=== PATIENT | female | born 1950 | race Hispanic/Latino ===

== ENCOUNTER 2020-07-02 13:48 | Emergency (ER) | payer OTHER ==
[2020-07-02 15:29] LABS: Basophils # (Auto) 0.1 K/mm3 (0.0-0.1); Basophils % (Auto) 1.1 % (0.0-1.8); Eosinophils # (Auto) 0.2 K/mm3 (0.0-0.4); Eosinophils % (Auto) 4.3 % (0.0-4.3); Hematocrit 34.6 % (30.3-42.9); Hemoglobin 11.8 gm/dl (10.1-14.3); Lymphocytes % (Auto) 18.8 % (13.4-35.0); Mean Corpuscular HGB Conc 34 % (30-34); Mean Corpuscular Volume 88 fl (79-97); Monocytes # (Auto) 0.5 K/mm3 (0.0-0.8); Monocytes % (Auto) 9.4 % (0.0-7.3); Platelet Count 317 K/mm3 (140-440); Red Blood Count 3.94 M/mm3 (3.65-5.03)
[2020-07-02 15:38] LABS: INR 1.06 (0.87-1.13)
[2020-07-02 15:39] LABS: Partial Thromboplastin Time 30.8 Sec. (24.2-36.6)
[2020-07-02 15:48] LABS: Albumin 3.4 g/dL (3.9-5); BUN/Creatinine Ratio 17; Blood Urea Nitrogen 15 mg/dL (7-17); Calcium 8.7 mg/dL (8.4-10.2); Hemolysis Index 2
[2020-07-02 15:52] LABS: Alanine Aminotransferase < 5 units/L (7-56)
[2020-07-02] MEDS ORDERED: SODIUM CHLORIDE 0.9% 1000 ML 1,000 ML IV ONE (16:23)
[2020-07-02] MEDS ORDERED: HYDROmorphone 1 MG/1 ML INJ IV ONE (16:23)
--- NOTE | 2020-07-02 16:24 | Emergency Department Report ---
ED General Adult HPI - General Chief complaint: GI Bleed Stated complaint: DARK STOOL PUI?: No Time Seen by Provider: 07/02/20 14:21 Source: patient, EMS ( EMS documentation not available at time of chart dictation ), RN notes reviewed, old records reviewed Mode of arrival: Stretcher Limitations: Other (Patient is demented) - History of Present Illness Initial comments: The patient was evaluated in the emergency department for symptoms described in the history of present illness. He/she was evaluated in the context of the global COVID-19 pandemic, which necessitated consideration that the patient might be at risk for infection with the virus that causes COVID-19. Institutional protocols and algorithms that pertain to the evaluation of patients at risk for COVID-19 are in a state of rapid change based on information released by regulatory bodies including the CDC and federal and state organizations. These policies and algorithms were followed during the patient's care in the emergency department. Please note that these policies, procedures and recommendations changed on a rapid basis. This is a 69-year-old female. She is not known to myself previously. She reportedly has a history of dementia, and possible hypertension. She presents on a 1013, with a psychiatric sitter. Patient was recently cleared fr another hospital, for aggressive behavior, and sent to a local psychiatric facility. She was referred to this emergency room, because she had an episode of black stool. Her enclosed paperwork does not indicate the presence of systemic anticoagulation. The patient is initially pleasant and cooperative, demented and a poor historian. She denies physical pain. She denies hallucinations. Given her dementia, she is not able to describe qualitative nature of symptoms, exacerbating factors, relieving factors or aggravating factors. Her accompanying sitter indicates that she had a "jet black bowel movement." He has not seen any nausea or vomiting. -: This afternoon Quality: other Consistency: other Improves with: other Worsens with: other Associated Symptoms: other Treatments Prior to Arrival: other - Related Data Allergies Allergy/AdvReac Type Severity Reaction Status Date / Time Penicillins Allergy Unknown Verified 07/02/20 14:06 ED Review of Systems ROS: Stated complaint: DARK STOOL Other details as noted in HPI Comment: Unobtainable due to pts medical conditions (Patient demented and a poor historian) ED Past Medical Hx - Past Medical History Previous Medical History?: Yes Hx Hypertension: Yes Hx Psychiatric Treatment: Yes (psychosis) - Surgical History Past Surgical History?: No - Social History Smoking Status: Never Smoker ED Physical Exam - General Limitations: Physical Limitation General appearance: alert, in no apparent distress, obese - Head Head exam: Present: atraumatic, normocephalic - Eye Eye exam: Present: normal appearance, EOMI - ENT ENT exam: Present: normal orophraynx, mucous membranes moist, normal external ear exam - Neck Neck exam: Present: normal inspection, full ROM. Absent: tenderness, meningismus - Respiratory Respiratory exam: Present: normal lung sounds bilaterally. Absent: respiratory distress, wheezes, rales, rhonchi, stridor, decreased breath sounds - Cardiovascular Cardiovascular Exam: Present: regular rate, normal rhythm, normal heart sounds. Absent: bradycardia, tachycardia, irregular rhythm, systolic murmur, diastolic murmur, rubs, gallop - GI/Abdominal GI/Abdominal exam: Present: soft, tenderness, other (There is suprapubic and bilateral lower quadrant abdominal tenderness. There is no rebound or guarding). Absent: distended, guarding, rebound, rigid, pulsatile mass - Rectal Rectal exam: Present: normal inspection, normal rectal tone, heme (-) stool, black stool, other (Chaperoned by nurse Shanthi Garcia). Absent: decreased rectal tone, heme (+) stool, bloody stool - Extremities Exam Extremities exam: Present: normal inspection, full ROM, other (2+ pulses noted in the bilateral upper and lower extremities. There is no palpable cord. negative Homans sign. Muscular compartments are soft. The pelvis is stable.). Absent: pedal edema, calf tenderness - Back Exam Back exam: Present: normal inspection, full ROM. Absent: tenderness, CVA te nderness (R), CVA tenderness (L), paraspinal tenderness, vertebral tenderness - Neurological Exam Neurological exam: Present: alert (Patient is alert to name. Patient follows commands.), normal gait, other (No facial droop. Tongue midline. Extraocular movements intact bilaterally. Facial sensation intact to light touch in V1, V2, V3 distribution bilaterally. 5 and a 5 strength in 4 extremities. Sensation intact to light touch in 4 extremities.) - Psychiatric Psychiatric exam: Present: agitated - Skin Skin exam: Present: warm, dry, intact, normal color. Absent: rash ED Course Vital Signs 07/02/20 07/02/20 07/02/20 14:10 14:15 15:00 Temperature 98.0 F Pulse Rate 106 H 105 H Respiratory 17 28 H Rate Blood Pressure 152/78 131/83 Blood Pressure [Left] O2 Sat by Pulse 97 100 Oximetry 07/02/20 07/02/20 17:25 19:15 Temperature 97.8 F Pulse Rate 86 97 H Respiratory 16 20 Rate Blood Pressure Blood Pressure 162/87 149/92 [Left] O2 Sat by Pulse 99 97 Oximetry - Reevaluation(s) Reevaluation #1: 07/02/20 18:49 Differential diagnosis, including but not limited to: GI bleed, black stool, bismiuth utilization, obstruction, colitis, diverticulitis, urinary tract infection, dementia, medical clearance for psychiatric placement Assessment and plan: 69-year-old elderly female, who is referred to the emergency room because of a history of black stool. The patient is afebrile with a rectal temperature of 98 degrees, with reassuring vital signs. She has black stool on rectal exam, that is guaiac negative. Hemoglobin, hematocrit within normal limits. She does not have an elevated blood urea nitrogen. This is very unlikely to be a GI bleed. On her examination, she has suprapubic abdominal tenderness, and bilateral lower quadrant abdominal tenderness. Therefore, given advanced age, dementia, lower abdominal tenderness, a CT scan of the abdomen pelvis was necessary to exclude emergent surgical pathology. CT scan abdomen pelvis today did not demonstrate any acute/emergent condition. Urinalysis is pending at this time. Patient is agitated, and uncooperative, does not demonstrate decision-making cap ability or capacity, and did not respond to deverbal escalation techniques or show of force. At 1 point time she was walking around the department/room, banging on her door, yelling and screaming. She therefore required medication with haloperidol, Ativan, and subsequently Geodon. We are currently awaiting urinalysis at this time. We anticipate that the patient may be discharged, plus minus with antibiotics, depending on her urinalysis. Reevaluation #2: 07/02/20 18:58 Patient is still awake. We are not able to obtain urine sample at this time. Additional Geodon will be ordered. Reevaluation #3: 07/02/20 19:40 Urinalysis not consistent with urinary tract infection. Patient resting comfortably at this time in no acute distress. Vital signs remained stable. ED Medical Decision Making - Lab Data Result diagrams: 07/02/20 15:10 07/02/20 15:10 Vital Signs 07/02/20 07/02/20 07/02/20 14:10 14:15 15:00 Temperature 98.0 F Pulse Rate 106 H 105 H Respiratory 17 28 H Rate Blood Pressure 152/78 131/83 Blood Pressure [Left] O2 Sat by Pulse 97 100 Oximetry 07/02/20 17:25 Temperature Pulse Rate 86 Respiratory 16 Rate Blood Pressure Blood Pressure 162/87 [Left] O2 Sat by Pulse 99 Oximetry Lab Results 07/02/20 07/02/20 07/02/20 Range/Units 15:10 15:10 15:10 WBC 5.2 (4.5-11.0) K/mm3 RBC 3.94 (3.65-5.03) M/mm3 Hgb 11.8 (10.1-14.3) gm/dl Hct 34.6 (30.3-42.9) % MCV 88 (79-97) fl MCH 30 (28-32) pg MCHC 34 (30-34) % RDW 14.0 (13.2-15.2) % Plt Count 317 (140-440) K/mm3 Lymph % (Auto) 18.8 (13.4-35.0) % Canadian % (Auto) 9.4 H (0.0-7.3) % Eos % (Auto) 4.3 (0.0-4.3) % Baso % (Auto) 1.1 (0.0-1.8) % Lymph # (Auto) 1.0 L (1.2-5.4) K/mm3 Canadian # (Auto) 0.5 (0.0-0.8) K/mm3 Eos # (Auto) 0.2 (0.0-0.4) K/mm3 Baso # (Auto) 0.1 (0.0-0.1) K/mm3 Seg Neutrophils % 66.4 (40.0-70.0) % Seg Neutrophils # 3.4 (1.8-7.7) K/mm3 PT 13.7 (12.2-14.9) Sec. INR 1.06 (0.87-1.13) APTT 30.8 (24.2-36.6) Sec. Sodium 140 (137-145) mmol/L Potassium 4.3 (3.6-5.0) mmol/L Chloride 104.1 (98-107) mmol/L Carbon Dioxide 27 (22-30) mmol/L Anion Gap 13 mmol/L BUN 15 (7-17) mg/dL Creatinine 0.9 (0.6-1.2) mg/dL Estimated GFR > 60 ml/min BUN/Creatinine Ratio 17 % Glucose 114 H (65-100) mg/dL Calcium 8.7 (8.4-10.2) mg/dL Magnesium (1.7-2.3) mg/dL Total Bilirubin < 0.20 (0.1-1.2) mg/dL AST 14 (5-40) units/L ALT < 5 L (7-56) units/L Alkaline Phosphatase 76 (35-129) units/L Total Creatine Kinase (30-135) units/L Total Protein 6.6 (6.3-8.2) g/dL Albumin 3.4 L (3.9-5) g/dL Albumin/Globulin Ratio 1.1 % Lipase 23 (13-60) units/L Salicylates (2.8-20.0) mg/dL Acetaminophen (10.0-30.0) ug/mL Valproic Acid (50-100) ug/mL 07/02/20 07/02/20 07/02/20 Range/Units 16:28 16:28 16:28 WBC (4.5-11.0) K/mm3 RBC (3.65-5.03) M/mm3 Hgb (10.1-14.3) gm/dl Hct (30.3-42.9) % MCV (79-97) fl MCH (28-32) pg MCHC (30-34) % RDW (13.2-15.2) % Plt Count (140-440) K/mm3 Lymph % (Auto) (13.4-35.0) % Canadian % (Auto) (0.0-7.3) % Eos % (Auto) (0.0-4.3) % Baso % (Auto) (0.0-1.8) % Lymph # (Auto) (1.2-5.4) K/mm3 Canadian # (Auto) (0.0-0.8) K/mm3 Eos # (Auto) (0.0-0.4) K/mm3 Baso # (Auto) (0.0-0.1) K/mm3 Seg Neutrophils % (40.0-70.0) % Seg Neutrophils # (1.8-7.7) K/mm3 PT (12.2-14.9) Sec. INR (0.87-1.13) APTT (24.2-36.6) Sec. Sodium (137-145) mmol/L Potassium (3.6-5.0) mmol/L Chloride (98-107) mmol/L Carbon Dioxide (22-30) mmol/L Anion Gap mmol/L BUN (7-17) mg/dL Creatinine (0.6-1.2) mg/dL Estimated GFR ml/min BUN/Creatinine Ratio % Glucose (65-100) mg/dL Calcium (8.4-10.2) mg/dL Magnesium 2.10 (1.7-2.3) mg/dL Total Bilirubin (0.1-1.2) mg/dL AST (5-40) units/L ALT (7-56) units/L Alkaline Phosphatase (35-129) units/L Total Creatine Kinase 211 H (30-135) units/L Total Protein (6.3-8.2) g/dL Albumin (3.9-5) g/dL Albumin/Globulin Ratio % Lipase (13-60) units/L Salicylates < 0.3 L (2.8-20.0) mg/dL Acetaminophen 5.0 L (10.0-30.0) ug/mL Valproic Acid 16.0 L (50-100) ug/mL - EKG Data -: EKG Interpreted by De EKG shows normal: sinus rhythm, axis, intervals, QRS complexes, ST-T waves - EKG Data When compared to previous EKG there are: previous EKG unavailable 07/02/20 18:45 EKG interpreted at 15: 52 Sinus rhythm, normal P wave axis. Normal axis, normal intervals, left ventricular hypertrophy, Q waves noted V2. Low voltage in the inferior leads. This is an abnormal EKG. This is not a STEMI. There is no prior EKG available for comparison. - Radiology Data Radiology results: report reviewed, image reviewed [facility] [address] [place] [address] Cat Scan Report Signed Patient: LIAT GERONIMO MR#: [id number] 1 : 1950 Acct:[id number] Age/Sex: 69 / F ADM Date: 07/02/20 Loc: ED Attending Dr: Ordering Physician: STACIE LEWIS MD Date of Service: 07/02/20 Procedure(s): CT abdomen pelvis w con Accession Number(s): [id number] cc: STACIE LEWIS MD CT ABDOMEN AND PELVIS WITH CONTRAST INDICATION / CLINICAL INFORMATION: MAIN. TECHNIQUE: Axial CT images were obtained through the abdomen and pelvis after 100 cc Omni [address] scans at this location are performed using CT dose reduction for ALARA by means of automated exposure control. COMPARISON: None available. FINDINGS: LOWER CHEST: No significant abnormality. HEPATOBILIARY: No significant abnormality. PANCREAS/SPLEEN/ADRENALS: No significant abnormality. GENITOURINARY: No significant abnormality. GASTROINTESTINAL/MESENTERY: Postoperative change in the pericecal region possibly representing prior resection and appendectomy. Colonic diverticulosis without evidence of diverticulitis. No bowel obstruction or inflammation. No free air or significant free fluid. Note is made that a small amount of distal small bowel projects slightly into the right inguinal region possibly representing a hernia. RETROPERITONEUM: No significant adenopathy. REPRODUCTIVE ORGANS: No significant abnormality. VASCULAR: Moderate atherosclerotic calcification without acute abnormality. IVC filter in place at the level of the renal veins. BODY WALL: No significant abnormality. SKELETAL SYSTEM: Extensive postoperative fusion throughout the thoracolumbar and sacral region. No acute fracture or aggressive osseous lesion. IMPRESSION: 1. No acute abdominal pelvic abnormality. 2. A small amount of distal small bowel projects slightly into the right inguinal region possibly representing a hernia. No evidence of bowel obstruction or inflammation. 3. IVC filter in place at the level of the renal veins. 4. Additional findings as above. Signer Name: Ihsan Malin MD Signed: 07/02/2020 6:19 PM Workstation Name: [id number] Transcribed By: RH Dictated By: IHSAN MALIN III Electronically Authenticated By: IHSAN MALIN III Signed Date/Time: 07/02/201818 DD/ 03 Critical care attestation.: If time is entered above; I have spent that time in minutes in the direct care of this critically ill patient, excluding procedure time. ED Disposition Clinical Impression: Acute bilateral lower abdominal pain, Black stool, Medical clearance for psychiatric admission Dementia Qualifiers: Dementia type: unspecified type Dementia behavioral disturbance: with behavioral disturbance Qualified Code(s): F03.91 - Unspecified dementia with behavioral disturbance Disposition: DC/TX-65 PSY HOSP/PSY UNIT Is pt being admited?: No Does the pt Need Aspirin: No Condition: Good Instructions: Abdominal Pain, Adult, [id number], Dementia, [id number] Additional Instructions: Please avoid consumption of Motrin, ibuprofen, Naprosyn, Aleve. Do not take metformin medication for the next 2 days, if patient takes this medication. Please follow-up with your primary care doctor or cmm operator within the next 3 to 5 days for repeat checkup and evaluation. Cultures were sent today, and results to be available in the next 3 to 5 days. Please have a primary care doctor contact the medical records department to obtain culture results. Please have your primary care doctor contact medical records department to obtain copies of laboratory studies, radiology studies to follow-up on nonemergent incidental findings. Please return to the emergency room right away with new pain, worsened pain, migration of pain, projectile vomiting, change in mental status, confusion, inability to tolerate liquid feeds, new, worsened or different symptoms not present on the initial emergency room evaluation. Referrals: PRIMARY MD TABITHA [Primary Care Provider] - 3-5 Days GARRETT RAYGOZA MD [Staff Physician] - 3-5 Days MARY BENSON MD [Staff Physician] - 3-5 Days Forms: Accompanied Note
[2020-07-02] MEDS ORDERED: HALOPERIDOL LACTATE 5 MG/1 ML INJ IM ONE (16:46)
[2020-07-02] MEDS ORDERED: LORazepam 2 MG/ML VIAL ONE (16:50)
[2020-07-02] MEDS ORDERED: LORazepam 2 MG/ML VIAL IV NR (17:00)
[2020-07-02] MEDS ORDERED: ZIPRASIDONE MESYLATE 20 MG VIAL IM ONE (18:19)
--- NOTE | 2020-07-02 18:23 | Cat Scan Report ---
CT ABDOMEN AND PELVIS WITH CONTRAST INDICATION / CLINICAL INFORMATION: MAIN. TECHNIQUE: Axial CT images were obtained through the abdomen and pelvis after 100 cc Omni [address] scans at this location are performed using CT dose reduction for ALARA by means of automated expos ure control. COMPARISON: None available. FINDINGS: LOWER CHEST: No significant abnormality. HEPATOBILIARY: No significant abnormality. PANCREAS/SPLEEN/ADRENALS: No significant abnormality. GENITOURINARY: No significant abnormality. GASTROINTESTINAL/MESENTERY: Postoperative change in the pericecal region possibly representing prior resection and appendectomy. Colonic diverticulosis without evidence of diverticulitis. No bowel obst ruction or inflammation. No free air or significant free fluid. Note is made that a small amount of d istal small bowel projects slightly into the right inguinal region possibly representing a hernia. RETROPERITONEUM: No significant adenopathy. REPRODUCTIVE ORGANS: No significant abnormality. VASCULAR: Moderate atherosclerotic calcification without acute abnormality. IVC filter in place at th e level of the renal veins. BODY WALL: No significant abnormality. SKELETAL SYSTEM: Extensive postoperative fusion throughout the thoracolumbar and sacral region. No ac venetie fracture or aggressive osseous lesion. IMPRESSION: 1. No acute abdominal pelvic abnormality. 2. A small amount of distal small bowel projects slightly into the right inguinal region possibly rep resenting a hernia. No evidence of bowel obstruction or inflammation. 3. IVC filter in place at the level of the renal veins. 4. Additional findings as above. Signer Name: Silverio Malin MD Signed: 07/02/2020 6:19 PM Workstation Name: [id number]
[2020-07-02] MEDS ORDERED: ZIPRASIDONE MESYLATE 20 MG VIAL IM PRN (18:58)
[2020-07-02] MEDS ORDERED: WATER FOR INJ Sterile (PF) 10 ML ONE (19:00)
[2020-07-02 19:20] VITALS: BP 149/92
[2020-07-02 19:33] LABS: Bilirubin,Urine NEG (Negative); Blood,Urine NEG (Negative); Color,Urine Yellow (Yellow); Protein,Urine <15 mg/dL mg/dL (Negative); Urobilinogen,Urine < 2.0 mg/dL (<2.0)
--- NOTE | 2020-07-04 17:28 | Electrocardiograph Report ---
[facility] Test Date: 2020-07-02 Test Time: 15:52:12 Pat Name: LIAT GERONIMO Department: Room: Gender: F Placement Officer: DIANA : 1950 Requested By: STACIE LEWIS Order Number: [id number] Reading MD: Zeyad De La Paz Measurements Intervals Chambers Rate: 96 P: 42 NV: 180 QRS: 30 QRSD: 72 T: 45 QT: 341 QTc: 433 Interpretive Statements Sinus rhythm Probable left atrial enlargement No previous ECG available for comparison Electronically Signed On 07-04-2020 17:27:46 EDT by Zeyad De La Paz
== END 2020-07-03 00:32 ==
LOC: ED 13:48
DX: K92.1 Melena (principal); F03.90 Unspecified dementia, unspecified severity, without behavioral disturbance, psychotic disturbance, mood disturbance, and anxiety; Z04.6 Encounter for general psychiatric examination, requested by authority; I10 Essential (primary) hypertension; Z79.899 Other long term (current) drug therapy; Z88.0 Allergy status to penicillin
CPT/HCPCS: 36415; 74177; 80053; 80164; 81001; 82550; 83690; 83735; 85025; 85610; 85730; 87086; 96372; 96374; 96375; 99284; J1630; J2060; J3486; Q9967; 80320; 93005; G0480